=== PATIENT | male | born 1990 | race Native Hawaiian/Other Pacific Islander ===

== ENCOUNTER 2017-05-03 09:20 | Emergency (ER) | payer OTHER ==
[2017-05-03 17:34] LABS: POTASSIUM 4.8 mmol/L (3.6-5.2)
[2017-05-03 17:38] LABS: PLATELET COUNT 212 K/uL (142-355)
== END 2017-05-03 14:08 | disposition home or self-care (01) ==
LOC: ED 09:20
DX: K21.9 Gastro-esophageal reflux disease without esophagitis (principal); R10.13 Epigastric pain
CPT/HCPCS: 36415; 80053; 82150; 85027; 99283